=== PATIENT | female | born 1990 ===

== ENCOUNTER 2020-12-09 11:00 | Outpatient (CLI) | payer OTHER ==
[~2020-12-09] VITALS: Ht 165.1 cm; Wt 80.9 kg
--- NOTE | 2020-12-09 11:05 | NUR ---
1105- Pt arrives on unit ambulatory with . States UCs started last evening around 1900. Pt states they are currently 3-5 mins apart. Pt into bathroom to change into gown. 1111- Pt into bed. EFM and TOCO on and tracing well. O2 sat monitor on and tracing maternal HR. VSS. Assessment completed. Discussed POC and answered questions.
[2020-12-09] MEDS ORDERED: CLARITIN 1010 MG/TAB PO (11:25)
[2020-12-09] MEDS ORDERED: PRENATAL TABLET PO (11:26)
[2020-12-09 11:30] VITALS: BP 120/76; PULSE 91; TEMP 98.3
[2020-12-09 12:00] VITALS: BP 95/52; PULSE 98
--- NOTE | 2020-12-09 12:00 | NUR ---
1135- Pt repositioned to RL for comfort, EFM and TOCO adjusted. Water provided to drink. Pt requesting BB when possible. 1155- Pt assisted out of bed and onto BB. Discussed POC and questions answered. Call light with reach.
[2020-12-09 12:30] VITALS: BP 101/71; PULSE 102
--- NOTE | 2020-12-09 13:05 | NUR ---
1248- EFM and TOCO off. Discussed discharge plan, labor precautions. Questions answered. Pt up to bathroom to change into street clothes. 1305- Discharge paperwork given and explained, denies questions. Pt ambulates off unit in stable condition.
== END 2020-12-09 13:05 | disposition home or self-care (01) ==
LOC: LDRO 11:00 → LDR 11:27 → LDRO 13:05
DX: O99.613 Diseases of the digestive system complicating pregnancy, third trimester (principal); K51.90 Ulcerative colitis, unspecified, without complications; Z3A.42 42 weeks gestation of pregnancy
CPT/HCPCS: OP

== ENCOUNTER 2020-12-10 06:46 | Inpatient (IN) | payer OTHER ==
[2020-12-10] VITALS (52 sets, daily range): BP systolic 87–131; BP diastolic 48–82; PULSE 88–148; TEMP 97.9–98.3
[~2020-12-10] VITALS: Ht 165.1 cm; Wt 80.9 kg
[~2020-12-10 06:46] MED LIST: CLARITIN 1010 MG/TAB PO; PRENATAL TABLET PO
--- NOTE | 2020-12-10 07:30 | NUR ---
0650- Pt arrives on unit via wheelchair with complaints of contractions every 2-5 mins apart. Pt up to bathroom to change into gown. 0655- Pt into bed, EFM and TOCO on and tracing well. O2 sat monitor on and tracing. Pt denies VB, LOF. Unsure of FM due to contractions. Pt exhausted. VSS. Assessment completed.
--- NOTE | 2020-12-10 08:00 | NUR ---
0730- Discussed admission and options for pain control, questions answered. Pt leaning towards epidural but would like to speak to Dr Roles. 0755- Dr Roles at bedside. Discusses POC, questions answered. Pt decides to procede with epidural.
[2020-12-10 08:39] LABS: BASO % 0.3 % (0.0-2.0); EOS # 0.1 (0.0-0.7); EOS % 0.5 % (0-4.0); GRAN # 13.4 (1.4-6.5); GRAN % 84.4 % (42.2-75.2); HEMATOCRIT 42.6 % (37.0-47.0); LYMPH # 1.3 (1.2-3.4); LYMPH % 8.1 % (20.0-51.0); MEAN CELL VOLUME 89 fl (80.0-100.0); MEAN CORPUSCULAR HEMOGLOBIN 29 pg (27.0-31.0); MEAN CORPUSCULAR HGB CONC 33 g/dl (33.0-37.0); MEAN PLATELET VOLUME 10.7 fl (7.4-10.4); MONO # 0.9 (0.1-0.6); MONO % 5.8 % (1.7-9.3); PLATELET COUNT 253 K/mm3 (130-400); RED BLOOD COUNT 4.81 M/mm3 (4.10-5.30); REDCELL DISTRIBUTION WIDTH-CV 14.2 % (11.5-14.5)
--- NOTE | 2020-12-10 09:00 | NUR ---
0844- Pt assisted to standing on side of bed then sitting on side of bed for epidural placment. Rodrigo Rodriguez, ARRON at bedside. 0944- Test dose, see anesthesia record.
--- NOTE | 2020-12-10 13:30 | NUR ---
1324- RN at bedside to evaluate recurrent late decels. SVE, Pt assisted to RL. EFM and TOCO adjusted. IVF bolus initated, 200mls infused.
--- NOTE | 2020-12-10 15:50 | NUR ---
1550- Roles at nurses station, reviews strip, remains at nurses station.
--- NOTE | 2020-12-10 16:30 | NUR ---
1630- Roles remains at nurses station monitoring strip.
--- NOTE | 2020-12-10 18:12 | NUR ---
1807- Dr Roles at bedside to evaulate pushing. Pt and room prepped for delivery. nurse Jonry RN called to delivery. Pt continues pushing with Jyoti Bennett RN at bedside. 1811- of viable male . to mother's abdomen where dried and stimulated, tended to by JESUS Webb. Pitocin off. JESUS Tyson at bedside, shift change report given at bedside. 1818- Spontaneous delivery of placenta. Pitocin restarted at 333ml/hr. Fundus massaged by MD. Tyson, RN assumes care of Pt at this time.
[2020-12-11 00:30] VITALS: BP 96/50; PULSE 92; TEMP 98.7
[2020-12-11 07:45] VITALS: BP 103/65; PULSE 95; TEMP 97.7
--- NOTE | 2020-12-11 09:47 | NUR ---
Initial visit attempt; Nurse with family, [employer] left card offering congratulations for the of their son and information regarding the availability of [facility] at [facility].
[2020-12-11 12:30] VITALS: BP 95/54; PULSE 87; TEMP 97.9
[2020-12-11 16:30] VITALS: BP 96/59; PULSE 106; TEMP 98
[2020-12-11 20:40] VITALS: BP 94/55; PULSE 81; TEMP 98.3
[2020-12-12 08:00] VITALS: BP 103/62; PULSE 92; TEMP 98.4
[2020-12-12] MEDS ORDERED: TYLENOL 500MG500 MG PO (09:01)
[2020-12-12] MEDS ORDERED: IBU600 MG PO (09:01)
--- NOTE | 2020-12-12 18:30 | NUR ---
pt. prepares to go home- states she is nervous- rn explains she can call to the unit at any time day or night if concerns or questions arise. phone number given.
--- NOTE | 2020-12-12 19:00 | NUR ---
pt and baby escorted off the unit. secured in car seat by dad-
== END 2020-12-12 19:00 | disposition home or self-care (01) | DRG 807 ==
LOC: LDRO 06:46 → LDR 07:10 → OB 07:10
PROVIDERS: ADMIT Obstetrics & Gynecology
PROC: 10E0XZZ Delivery of Products of Conception, External Approach (ICD-10-PCS; principal; 2020-12-10)
PROC: 0KQM0ZZ Repair Perineum Muscle, Open Approach (ICD-10-PCS; 2020-12-10)
PROC: 10907ZC Drainage of Amniotic Fluid, Therapeutic from Products of Conception, Via Natural or Artificial Opening (ICD-10-PCS; 2020-12-10)
DX: O48.0 Post-term pregnancy (principal); Z37.0 Single live birth; Z3A.40 40 weeks gestation of pregnancy; O70.1 Second degree perineal laceration during delivery
CPT/HCPCS: J2590; J7120